=== PATIENT | male | born 1965 | race Caucasian/White ===

== ENCOUNTER 2024-11-07 08:29 | Emergency (ER) | payer OTHER ==
[2024-11-07 09:26] LABS: BASOPHILS PERCENT AUTO 0.6 % (0.0-1.0); EOSINOPHILS PERCENT AUTO 0.8 % (1.0-3.0); LYMPHOCYTES PERCENT AUTO 34.7 % (20.5-50.1); MONOCYTES PERCENT AUTO 11.6 % (2-8); NEUTROPHILS PERCENT AUTO 52.3 % (42.2-75.2); RED BLOOD CELL COUNT 4.69 10^6/uL (4.6-6.2); WHITE BLOOD CELL COUNT,WBC 3.6 10^3/uL (5.0-10.0)
[2024-11-07 09:33] LABS: A/G RATIO 0.8; ALANINE AMINOTRANSFERASE,ALT 48.0 U/L (16-63); ASPARTATE AMNIOTRANSFERASE,AST 45.0 U/L (15-37); BILIRUBIN TOTAL 1.4 mg/dL (0.2-1.0); BLOOD UREA NITROGEN,BUN 16.0 mg/dL (7-18); CARBON DIOXIDE,CO2 28.0 mmol/L (21-32); CHLORIDE,CL 100.0 mmol/L (98-107); CREATININE 1.07 mg/dL (0.70-1.30); EST CRCL DRUG DOSING (CG) 84.29 mL/min; GLUCOSE RANDOM 120.0 mg/dL (70-99); POTASSIUM,K 3.5 mmol/L (3.5-5.1); PROTEIN TOTAL,TP 7.9 g/dL (6.4-8.2); SODIUM,NA 140.0 mmol/L (136-145)
[2024-11-07 09:34] LABS: ESTIMATED GFR 79.0 mL/min (>=60)
[2024-11-07 09:35] LABS: PLATELET COUNT,PLT 22 10^3/uL (150-450)
== END 2024-11-07 12:10 | disposition home or self-care (01) ==
LOC: MERGE 08:29 → DL.ED 08:29
DX: D69.6 Thrombocytopenia, unspecified (principal)
CPT/HCPCS: 36415; 80053; 85025; 87040; 87428-QW; 99283

== ENCOUNTER 2024-11-12 18:22 | Emergency (ER) | payer OTHER ==
[2024-11-12 20:17] LABS: BASOPHILS PERCENT AUTO 0.3 % (0.0-1.0); EOSINOPHILS PERCENT AUTO 0.3 % (1.0-3.0); LYMPHOCYTES PERCENT AUTO 31.9 % (20.5-50.1); MONOCYTES PERCENT AUTO 8.6 % (2-8); NEUTROPHILS PERCENT AUTO 58.9 % (42.2-75.2); PLATELET COUNT,PLT 38 10^3/uL (150-450); RED BLOOD CELL COUNT 4.31 10^6/uL (4.6-6.2); WHITE BLOOD CELL COUNT,WBC 3.9 10^3/uL (5.0-10.0)
[2024-11-12 20:27] LABS: LACTIC ACID 1.9 mmol/L (0.4-2.0)
[2024-11-12 20:43] LABS: ALANINE AMINOTRANSFERASE,ALT 100 U/L (16-63); ASPARTATE AMNIOTRANSFERASE,AST 178 U/L (15-37); BILIRUBIN TOTAL 1.4 mg/dL (0.2-1.0); BLOOD UREA NITROGEN,BUN 17 mg/dL (7-18); CARBON DIOXIDE,CO2 26 mmol/L (21-32); CHLORIDE,CL 95 mmol/L (98-107); CREATININE 1.22 mg/dL (0.70-1.30); EST CRCL DRUG DOSING (CG) 73.93 mL/min; GLUCOSE RANDOM 143 mg/dL (70-99); POTASSIUM,K 3.4 mmol/L (3.5-5.1); PROTEIN TOTAL,TP 7.5 g/dL (6.4-8.2); SODIUM,NA 132 mmol/L (136-145)
[2024-11-12 20:48] LABS: A/G RATIO 0.60; ESTIMATED GFR 67 mL/min (>=60)
[2024-11-12 21:07] LABS: LACTATE DEHYDROGENASE,LDH > 1000 U/L (85-227)
[2024-11-12 21:09] LABS: RETICULOCYTE COUNT PERCENT 2 % (0.5-1.5)
[2024-11-12] MEDS: Magnesium Sulfate 2 GM/50 mL 2 GM in Premix Bag 1 BAG IV ONE (21:24)
[2024-11-12 23:59] LABS: APPEARANCE,URINE CLEAR (CLEAR); GLUCOSE,URINE NEGATIVE (NEGATIVE); OCCULT BLOOD,URINE NEGATIVE (NEGATIVE)
[2024-11-14 07:42] LABS: NEUTROPHILS% 39 % (41-71)
== END 2024-11-13 00:11 ==
LOC: DL.ED 18:22
DX: A69.20 Lyme disease, unspecified (principal); B60.01 Babesiosis due to Babesia microti; Z88.0 Allergy status to penicillin; Z79.899 Other long term (current) drug therapy
CPT/HCPCS: 36415; 71045; 80053; 81001; 83010; 83605; 83615; 83690; 83735; 84484; 85025; 85045; 87040; 93005; 96361; 96365; 99284; A9270; J3475; J7030; 81003